=== PATIENT | male | born 1935 | race Caucasian/White ===

== ENCOUNTER → 2017-04-20 | Outpatient (CLI) | payer OTHER ==
[~2017-04-20] MED LIST: ADVAIR HFA115 MCG/21 INH; ASPIR 8181 MG PO; ASPIRIN325 PO; ASPIRIN81 M2 PO; ATORVASTATIN CA40 MG PO; CARVEDILOL12.5 MG PO; CLEAR EYES REDN30 M1 OPHTHALMIC; CO Q-10100 MG PO; HYDROCHLOROTH12.5 M1 PO; KLOR-CON 1010 MEQ PO; LASIX 20 MG TAB20 MG PO; LIPITOR 20 MG T20 M1 PO; LISINOPRIL10 MG PO; LISINOPRIL40 MG PO; NORCO 5-325 TA1 EACH PO; NORVASC 5 MG TAB5 MG; NORVASC10 MG PO; PLAVIX 75 MG TA75 M1; PLAVIX 75 MG TA75 MG PO; POTASSIUM20 PO; VITAMIN B-121000 MCG PO; VITAMIN D1000 UNI1 PO
--- NOTE | ~2017-04-20 | 2DMMODE ---
[facility] [place] [address] 2 D/M-MODE ECHOCARDIOGRAM Name: AGUAYOJASPREET Room #: REG [facility]#: [id number] Admission: 04/20/17 Attend Phys: Zeferino Rivera Discharge: Date of : 39 Date of Service: 04/20/17 1459 Report #: [id number] THIS REPORT FOR: //name// APPROVED REPORT Study performed: 04/20/2017 14:02:09 EXAM: Comprehensive 2D, Doppler, and color-flow Echocardiogram Patient Location: Out-Patient Room #: Echo lab Blood Pressure: 136/68 mmHg HR: 66 bpm Rhythm: Pacemaker Other Information Study Quality: Adequate Indications Arrhythmia Pacemaker 2D Dimensions RVDd: 39.96 mm IVC: 15.00 mm Volumes Left Atrial Volume (Systole) Single Plane 4CH: 54.91 mL Single Plane 2CH: 69.25 mL LA ESV Index: 31.00 mL/m2 Aortic Valve AoV Peak Virgilio.: 1.72 m/s AO Peak Gr.: 11.83 mmHg LVOT Max P.56 mmHg LVOT Max V: 1.07 m/s AI Vmax: 4.13 m/s AI Preston: 2.22 m/s2 AI PHT: 703.01 ms Mitral Valve E/A Ratio: 1.2 MV Decel. Time: 199.47 ms MV E Max Virgilio.: 0.58 m/s [facility] [address] [place] [address] 2 D/M-MODE ECHOCARDIOGRAM Name: JASPREET AGUAYO Room #: REG [facility].#: [id number] Admission: 04/20/17 Attend Phys: Zeferino Rivera Discharge: Date of : 39 Date of Service: 04/20/17 1459 Report #: [id number] MV A Virgilio.: 0.49 m/s MV PHT: 57.85 ms IVRT: 184.54 ms Pulmonary Valve PV Peak Virgilio.: 0.82 m/s PV Peak Gr.: 2.68 mmHg Pulmonary Vein P Vein S: 0.45 m/s P Vein A: 0.23 m/s P Vein D: 0.36 m/s P Vein A Dur.: 78.4 msec P Vein S/D Ratio: 1.25 Tricuspid Valve TR Peak Virgilio.: 2.75 m/s RAP Estimate: 5.00 mmHg TR Peak Gr.: 30.30 mmHg Left Ventricle The left ventricle is normal size. There is normal left ventricular wall thickness. The left ventricular systolic function is normal. The left ventricular ejection fraction is within the normal range. LVEF is 55-60%. Grade II - pseudonormal filling dynamics. Right Ventricle The right ventricle is normal size. The right ventricular systolic function is normal. Pacemaker lead is present in the right ventricle. Atria The left atrium size is normal. The right atrium size is normal. Pacemaker lead is present in the right atrium. Aortic Valve The aortic valve is normal in structure. Mild aortic regurgitation. There is no aortic valvular stenosis. Mitral Valve The mitral valve is normal in structure. Mild mitral regurgitation. No evidence of mitral valve stenosis. Tricuspid Valve The tricuspid valve is normal in structure. There is no tricuspid valve stenosis. Mild tricuspid regurgitation. Pulmonic Valve The pulmonary valve is normal in structure. Great Vessels [facility] [address] [place] [address] 2 D/M-MODE ECHOCARDIOGRAM Name: AGUAYOJASPREET [facility] [id number] Admission: 04/20/17 Attend Phys: Zeferino [facility]uñ[facility] Discharge: Date of : 39 Date of Service: 04/20/17 1459 Report #: [id number] The aortic root is normal in size. IVC is normal in size and collapses >50% with inspiration. Pericardium There is no pericardial effusion. <Conclusion> The left ventricle is normal size. LVEF is 55-60%. Pacemaker lead is present in the right ventricle. The aortic valve is normal in structure. Mild aortic regurgitation. The mitral valve is normal in structure. Mild mitral regurgitation. The tricuspid valve is normal in structure. Mild tricuspid regurgitation. The pulmonary valve is normal in structure. <ELECTRONICALLY SIGNED> By: Jimi Gonsalves MD 04/20/17 1459 1459 58 Jimi Gonsalves MD /INF
== END ==
LOC: CV 09:34
DX: I49.9 Cardiac arrhythmia, unspecified (principal)